=== PATIENT | male | born 1950 | race Caucasian/White ===

== ENCOUNTER → 2020-02-02 12:39 | Outpatient (BNVA) | payer MEDICARE, SELFPAY | PROVIDERS: PCP Internal Medicine; Visit Provider Internal Medicine | DX: I48.92 Unspecified atrial flutter (principal); R60.9 Edema, unspecified; I10 Essential (primary) hypertension; Z79.01 Long term (current) use of anticoagulants; Z79.899 Other long term (current) drug therapy | CPT/HCPCS: 93005; 99212 ==

== ENCOUNTER → 2020-03-14 12:34 | Outpatient (REF) | payer MEDICARE, SELFPAY ==
--- NOTE | 2020-03-14 12:37 | ECG_ITS ---
Hook-up date: 2020-03-14 12:48:00 Duration: 26:01:00 Test Indications: UNSPEC. ATRIAL FLUTTER Medications: 888492 QRS complexes * Ventricular ectopics which represent % of total QRS comp. 01818 Supraventricular ectopics which represent 10 % of total QRS comp. * Paced QRS complexs which represent % of total QRS comp. VENTRICULAR ECTOPY * Isolated * Bigeminal Cycles * Couplets * Runs * Beats in Runs * Beats LONGEST at * BPM at :: -- * Beats FASTEST at * BPM at :: -- SUPRAVENTRICULAR ECTOPY 81010 Isolated 125 Couplets 25 Runs 77 Beats in Runs 4 Beats LONGEST at 166 BPM at 16:00:34 2020-03-14 4 Beats FASTEST at 166 BPM at 16:00:34 2020-03-14 HEART RATES 54 MIN at 07:05:21 2020-03-15 79 AVG 137 MAX at 11:56:43 2020-03-15 LONGEST RR 1.8880 secs at 15:28:08 2020-03-14 S-T LEVELS Channel 1 - 128 mm at 12:48:00 2020-03-14 - 128 mm at 12:48:00 2020-03-14 Channel 2 - 128 mm at 12:48:00 2020-03-14 - 128 mm at 12:48:00 2020-03-14 Channel 3 - 128 mm at 03:20:71 -- - 128 mm at 03:20:71 Basic rhythm Normal sinus rhythm No long pause or profound bradycardia Baseline BBB Frequent Premature atrial complexes , 10% of total beats Short bursts of SVE No sustained Atrial fibrillation No diary submitted Referred By: Ted Cortez Overread By: LUCERO WINKLER MD
== END ==
LOC: HO.CARD 12:34
PROVIDERS: Visit Provider Internal Medicine
DX: I48.92 Unspecified atrial flutter (principal)
CPT/HCPCS: 93225; 93226

== ENCOUNTER → 2020-04-25 09:30 | Outpatient (BNVA) | payer MEDICARE, SELFPAY | PROVIDERS: Visit Provider Internal Medicine | DX: I48.92 Unspecified atrial flutter (principal); R60.0 Localized edema; I10 Essential (primary) hypertension; G47.33 Obstructive sleep apnea (adult) (pediatric) | CPT/HCPCS: 99212 ==

== ENCOUNTER → 2020-06-20 08:28 | Outpatient (BNVA) | payer MEDICARE, SELFPAY | PROVIDERS: PCP Internal Medicine; Visit Provider Psychiatry & Neurology Neurology | DX: G47.33 Obstructive sleep apnea (adult) (pediatric) (principal) | CPT/HCPCS: 99202 ==

== ENCOUNTER → 2020-08-29 09:53 | Outpatient (BNVA) | payer MEDICARE, SELFPAY | PROVIDERS: PCP Internal Medicine; Visit Provider Psychiatry & Neurology Neurology | DX: G47.33 Obstructive sleep apnea (adult) (pediatric) (principal) | CPT/HCPCS: Q3014 ==

== ENCOUNTER → 2020-10-26 12:30 | Outpatient (BNVA) | payer MEDICARE, SELFPAY | PROVIDERS: PCP Internal Medicine; Referring Provider Internal Medicine; Visit Provider Internal Medicine | DX: I48.92 Unspecified atrial flutter (principal); R60.0 Localized edema; I10 Essential (primary) hypertension; G47.33 Obstructive sleep apnea (adult) (pediatric) | CPT/HCPCS: 99212 ==

== ENCOUNTER → 2020-11-14 09:53 | Outpatient (BNVA) | payer MEDICARE, SELFPAY | PROVIDERS: PCP Internal Medicine; Referring Provider Internal Medicine; Visit Provider Psychiatry & Neurology Neurology | DX: G47.33 Obstructive sleep apnea (adult) (pediatric) (principal) | CPT/HCPCS: 99212 ==

== ENCOUNTER 2021-03-15 15:17 | Outpatient (REF) | payer MEDICARE, SELFPAY ==
[2021-03-15 16:06] LABS: Anion Gap 13 (12-20); Blood Urea Nitrogen 12 mg/dL (9-16); Calcium 9.7 mg/dL (8.4-10.2); Carbon Dioxide 27 mmol/L (22-29); Chloride 106 mmol/L (96-108); Estimated Glomerular Filt Rate > 60; Glucose Random 89 mg/dL (60-115); Potassium 4.2 mmol/L (3.3-5.1); Sodium 142 mmol/L (135-145)
== END 2021-03-15 15:18 | disposition home or self-care (01) ==
LOC: HO.LAB 15:17
PROVIDERS: Visit Provider Internal Medicine
DX: I10 Essential (primary) hypertension (principal)
CPT/HCPCS: 36415; 80048

== ENCOUNTER → 2021-05-01 12:08 | Outpatient (BNVA) | payer MEDICARE, SELFPAY | PROVIDERS: PCP Internal Medicine; Referring Provider Internal Medicine; Visit Provider Internal Medicine | DX: I48.92 Unspecified atrial flutter (principal); I45.2 Bifascicular block; I10 Essential (primary) hypertension; G47.33 Obstructive sleep apnea (adult) (pediatric); R60.0 Localized edema | CPT/HCPCS: 93005; 99212 ==

== ENCOUNTER → 2021-10-29 12:09 | Outpatient (BNVA) | payer MEDICARE, SELFPAY | PROVIDERS: PCP Internal Medicine; Referring Provider Internal Medicine; Visit Provider Internal Medicine | DX: I48.92 Unspecified atrial flutter (principal); R60.0 Localized edema; I10 Essential (primary) hypertension; I45.2 Bifascicular block; G47.33 Obstructive sleep apnea (adult) (pediatric); E66.01 Morbid (severe) obesity due to excess calories; Z68.41 Body mass index [BMI] 40.0-44.9, adult | CPT/HCPCS: 99212 ==

== ENCOUNTER → 2022-04-23 12:37 | Outpatient (BNVA) | payer MEDICARE, SELFPAY | PROVIDERS: PCP Internal Medicine; Referring Provider Internal Medicine; Visit Provider Internal Medicine | DX: I48.92 Unspecified atrial flutter (principal); I10 Essential (primary) hypertension; I45.2 Bifascicular block; R60.0 Localized edema; G47.33 Obstructive sleep apnea (adult) (pediatric); E66.01 Morbid (severe) obesity due to excess calories; Z68.41 Body mass index [BMI] 40.0-44.9, adult; Z79.01 Long term (current) use of anticoagulants; Z79.899 Other long term (current) drug therapy | CPT/HCPCS: 93005; 99212 ==

== ENCOUNTER → 2022-04-26 13:57 | Outpatient (BNVA) | payer MEDICARE, SELFPAY | PROVIDERS: PCP Internal Medicine; Visit Provider Nurse Practitioner Family | DX: G47.33 Obstructive sleep apnea (adult) (pediatric) (principal) | CPT/HCPCS: 99212 ==

== ENCOUNTER 2023-04-24 12:50 | Outpatient (AMB) | payer MEDICARE, SELFPAY ==
--- NOTE | 2023-04-24 13:09 | A.OFFVIS_ITS ---
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 He reports he has been doing well. He had a medical history of obesity, atrial flutter, bifascicular bundle branch block, hypertension, and STEFANY with daily CPAP use. He reports he has been doing good since his last visit. He denies any chest pain, shortness of breath, bleeding concerns, or swelling. He reports his blood pressures at home are typically 130s/70s. Blood pressure initially high upon arrival. Rechecked by me and improved. [facility] Medical History Morbid obesity STEFANY (obstructive sleep apnea) Essential hypertension Paroxysmal atrial flutter Surgical History History of Mohs micrographic surgery for skin cancer Family History Father No problems noted. Mother Muscular dystrophy Social History Alcohol intake: current Alcohol intake frequency: holidays/special occasions only Patient Tobacco Use Status: Former Tobacco user Quit Date: 3 yrs ago Review of Systems Const Denies chills, Denies fatigue, Denies fever(s), Denies frequent falls, Denies weakness, Denies weight gain and Denies weight loss ENT Denies dizziness Card Denies chest pain, Denies leg edema, Denies lightheadedness, Denies palpitations, Denies dyspnea and Denies dyspnea on exertion Resp Denies cough, Denies dyspnea and Denies dyspnea on exertion GI Denies hematochezia Musc Denies abnormal gait, Denies muscle weakness, Denies numbness, Denies radiating pain into limb and Denies tingling Neuro Denies abnormal gait, Denies dizziness, Denies frequent falls, Denies numbness, Denies tingling and Denies weakness Endo Denies fatigue and Denies palpitations Physical Exam Vital Signs: Last Vital Signs Pulse 86 04/24/23 13:11 BP 130/70 04/24/23 13:30 BMI result Body Mass Index 45.2 Const General: healthy appearing and no acute distress Orientation/consciousness: patient oriented x3 HEENT Head: Yes normal to inspection Eyes General: appearance normal, both eyes and all related structures Neck Neck: Yes normal visual inspection Chest Chest palpation & inspection: normal inspection of the chest Resp Effort & Inspection: normal respiratory effort Auscultation: clear to auscultation bilaterally Cardio Jugular venous distension: no JVD Palpation: normal PMI Rate: regular rate Rhythm: regular rhythm Heart sounds: S1 normal heart sound present, S2 normal heart sound present, no click, no gallops, no murmurs and no rubs GI Inspection: Yes normal to inspection Palpation (GI): Soft to palpation Skin General skin exam: no rashes or lesions noted Neuro General: patient oriented x3 Extrem General: Yes normal to inspection Psych Appearance: grossly normal Office Procedures EKG Details: EKG today. Normal Sinus Rhythm. Right bundle branch block. Left anterior fascicular block. Bifascicular block. Rate 86 bpm. No significant changes from last. [id number], Complete Assessment & Plan Assessment & Plan (1) Bifascicular bundle branch block: Code(s): I45.2 - Bifascicular block Plan: Follow on EKGs. (2) STEFANY (obstructive sleep apnea): Code(s): G47.33 - Obstructive sleep apnea (adult) (pediatric) Plan: Continue CPAP use. (3) Essential hypertension: Code(s): I10 - Essential (primary) hypertension Plan: Readings at home 130s/70s. His sister checks it for him periodically as she is a nurse and is within normal limits. On lisinopril. (4) Paroxysmal atrial flutter: Code(s): I48.92 - Unspecified atrial flutter Plan: No reports of palpitations. On diltiazem and eliquis. Report recurrent episodes and signs of bleeding. Signs of bleeding reviewed. Coding Level of Care Code Est Pt Level 3 (45388) Diagnoses Bifascicular bundle branch block I45.2 STEFANY (obstructive sleep apnea) G47.33 Essential hypertension I10 Paroxysmal atrial flutter I48.92 CPT Codes EKG - CPT: 86712-[id number], Complete ([id number])
[2023-04-24 13:11] VITALS: BP 160/70; PULSE 86; BMI 45.2
[2023-04-24 13:30] VITALS: BP 130/70
== END 2023-04-24 13:48 | disposition home or self-care (01) ==
PROVIDERS: Visit Provider Nurse Practitioner
DX: I45.2 Bifascicular block (principal); G47.33 Obstructive sleep apnea (adult) (pediatric); I10 Essential (primary) hypertension; I48.92 Unspecified atrial flutter
CPT/HCPCS: 93010; 99213

== ENCOUNTER → 2023-04-24 12:50 | Outpatient (BNVA) | payer MEDICARE, SELFPAY | PROVIDERS: Visit Provider Nurse Practitioner | DX: I45.2 Bifascicular block (principal); I48.92 Unspecified atrial flutter; I10 Essential (primary) hypertension; G47.33 Obstructive sleep apnea (adult) (pediatric) | CPT/HCPCS: 93005; 99212 ==

== ENCOUNTER 2023-04-30 14:18 | Outpatient (AMB) | payer MEDICARE, SELFPAY ==
--- NOTE | 2023-04-30 14:28 | MHC.OFFVIS ---
Intake Vital Signs 04/30/23 14:33 Height 5 ft 9 in Weight 308 lb BMI 45.5 BP 142/72 H Blood Pressure Location Lt brachial Position Sitting Pulse 74 Pulse Source Pulse Oximeter Pulse Oximetry (%) 95 Oxygen Delivery Method Room Air Intake Visit Reasons: 1yr follow up sleep-CONF Intake Note: Patient presents for 1 year f/u. waking up breathing through mouth and not through the nose causing dry mouth. Allergies No Known Allergies Allergy (Verified 04/30/23 14:32) HPI HPI Comments History of Present Illness Details 71 y/o male patient presents for follow up of STEFANY on CPAP. Pt reports that he uses CPAP almost every night and sleeps ok with CPAP. However, he noticed that his AHI has been increased lately. Pt states that his CPAP is more than 6 years now. Pt's CPAP compliance and therapy response (01/25/23-04/24/23) reviewed. He is on APAP [id number]. Usage days 97% and average usage hours 9 hours. The max pressure is 19.8 and the residual AHI was 14/hr . The apnea index was central 3.1 and obstructive 7.2. COUNTS INCLUDE 234 BEDS AT THE [facility] Medical History (Updated 04/30/23 @ 14:48 by Glory Man CNP) Morbid obesity STEFANY (obstructive sleep apnea) Essential hypertension Paroxysmal atrial flutter Surgical History History of Mohs micrographic surgery for skin cancer Family History Father No problems noted. Mother Muscular dystrophy Social History Alcohol intake: current Alcohol intake frequency: holidays/special occasions only Patient Tobacco Use Status: Former Tobacco user Quit Date: 3 yrs ago Review of Systems Const All systems reviewed & are unremarkable except as noted in HPI and below ENT Reports Normal hearing present Neuro Reports Normal hearing present Physical Exam Vital Signs: Last Vital Signs Pulse 74 04/30/23 14:33 BP 142/72 H 04/30/23 14:33 Pulse Ox 95 04/30/23 14:33 Oxygen Delivery Method Room Air 04/30/23 14:33 BMI result Body Mass Index 45.5 Const General: cooperative Nutritional Appearance: obese Orientation/consciousness: patient oriented x3 Neck Neck: Yes full ROM and Yes supple Resp Effort & Inspection: normal respiratory effort and able to speak in complete sentences Neuro General: patient oriented x3, gait normal and moves all extremities Cranial nerves: Yes Bilaterally intact EOM present, Yes Normal facial strength present, Yes Midline tongue present, Yes Symmetric palate elevation present, Yes Normal hearing present, Yes Ability to bilaterally rotate head present and Yes Ability to bilaterally elevate shoulders present Cognition (Neuro): normal cognition Gait exam (Neuro): Normal gait present Psych Appearance: grossly normal Mental Status: mental status grossly normal Speech and movement: Normal speech and movement present Attitude: cooperative Assessment & Plan Assessment & Plan (1) STEFANY (obstructive sleep apnea): Code(s): G47.33 - Obstructive sleep apnea (adult) (pediatric) Plan Advised patient to undergo in lab sleep study (split) to assess sleep apnea and find optimal CPAP pressure to treat sleep apnea. Wt reduction advised. Orders: Orders RT PSG in-lab sleep study Today E66.01 - Morbid (severe) obesity due to excess calories, G47.33 - Obstructive sleep apnea (adult) (pediatric) Coding Level of Care Code Est Pt Level 3 (35287) Diagnoses STEFANY (obstructive sleep apnea) G47.33
[2023-04-30 14:33] VITALS: BP 142/72; PULSE 74; O2SAT 95; BMI 45.5
== END 2023-04-30 14:44 | disposition home or self-care (01) ==
PROVIDERS: Visit Provider Nurse Practitioner Family
DX: G47.33 Obstructive sleep apnea (adult) (pediatric) (principal)
CPT/HCPCS: 99213

== ENCOUNTER → 2023-04-30 14:18 | Outpatient (BNVA) | payer MEDICARE, SELFPAY | PROVIDERS: Visit Provider Nurse Practitioner Family | DX: G47.33 Obstructive sleep apnea (adult) (pediatric) (principal) | CPT/HCPCS: 99212 ==

== ENCOUNTER → 2023-06-03 20:30 | Outpatient (REF) | payer MEDICARE, SELFPAY | LOC: HO.SL 20:30 | PROVIDERS: PCP Internal Medicine; Visit Provider Nurse Practitioner Family | DX: G47.33 Obstructive sleep apnea (adult) (pediatric) (principal); E66.01 Morbid (severe) obesity due to excess calories | CPT/HCPCS: 95810 ==

== ENCOUNTER → 2023-06-04 00:27 | Outpatient (BNV) | payer MEDICARE, SELFPAY | PROVIDERS: PCP Internal Medicine; Visit Provider Psychiatry & Neurology Neurology | DX: G47.9 Sleep disorder, unspecified (principal); E66.01 Morbid (severe) obesity due to excess calories | CPT/HCPCS: 95810 ==

== ENCOUNTER 2023-06-11 08:31 | Outpatient (AMB) | payer MEDICARE, SELFPAY ==
--- NOTE | 2023-06-11 08:52 | MHC.OFFVIS ---
Intake Vital Signs 06/11/23 08:57 Weight 308 lb 8 oz BP 164/76 H Blood Pressure Location Lt brachial Position Sitting Respiration 16 Pulse 76 Pulse Source Pulse Oximeter Pulse Oximetry (%) 94 Oxygen Delivery Method Room Air Intake Visit Reasons: Neuropathy Bilateral feet Allergies No Known Allergies Allergy (Verified 06/11/23 08:52) HPI HPI Comments History of Present Illness Details Lj is a very pleasant 73-year-old male who presents to the office today for evaluation management of his chronic bilateral peripheral edema and left lateral thigh paresthesia. Patient reports burning pain to the bottom of both feet that has been going on for greater than 6 months. Patient reports that he is borderline diabetic, has never formally been diagnosed with diabetes and does not currently take any medications for diabetes. He states the pain has started to get worse, it is severe at bedtime and is impacting his ability to sleep. Pain exacerbated by walking and standing. Patient also reports many years of numbness, burning and shocking sensation to the left lateral thigh from the top of the trochanter to the knee. He has been evaluated in the past, they tried gabapentin which provided him no relief. They then told him there was nothing they could offer. He does report occasional pain across his lower back that improves with rest. Reports he was told in the past that he had arthritis. Denies radiation of the pain from the back down the leg to the foot. Pain today is rated as a 2/10, constant, worse in the evenings. In terms of muscle damage condition is described as hot, burning, numb, tingling, pins and needles. Pain is negatively impacting patient's enjoyment of life, general activity, sleep and walking. Patient endorses current use of anticoagulants, Eliquis. [facility] Medical History (Updated 06/11/23 @ 09:33 by Norma Garner, BETHANY, [employer]) Morbid obesity STEFANY (obstructive sleep apnea) Essential hypertension Paroxysmal atrial flutter Surgical History History of Mohs micrographic surgery for skin cancer Family History Father No problems noted. Mother Muscular dystrophy Social History Alcohol intake: current Alcohol intake frequency: holidays/special occasions only Patient Tobacco Use Status: Former Tobacco user Quit Date: 3 yrs ago Review of Systems Const All systems reviewed & are unremarkable except as noted in HPI and below Physical Exam Vital Signs: Last Vital Signs Pulse 76 06/11/23 08:57 Resp 16 06/11/23 08:57 BP 164/76 H 06/11/23 08:57 Pulse Ox 94 06/11/23 08:57 Oxygen Delivery Method Room Air 06/11/23 08:57 General: awake, alert, oriented. Answers questions appropriately. Fully engaged in examination. Skin: warm, dry, intact. Bilateral feet: No rashes, lesions, wounds, abrasions. HEENT: Normocephalic. Hearing intact. Cardiac: External chest normal in appearance. Bilateral peripheral edema. Respiratory: No cough, audible wheezing or stridor. Abdomen: without gross distension. MS: No obvious swelling or deformities. Able to stand on bilateral tiptoes and bilateral heels.? Able to transition from sit to stand unassisted. Ambulates with bilaterally normal heel strike and toe off Bilateral lower extremity strength 5/5 SLR negative bilaterally Nontender over bilateral PSIS Patient unable to perform TRENT due to physical restrictions No pain with internal external rotation of the left hip Lumbar range of motion intact Neurological: Oriented to person, place, time and situation. Thought process intact. No gait abnormalities appreciated. Psychiatric: Appropriate mood and affect. Good judgment and insight. Assessment & Plan Assessment & Plan (1) Peripheral neuropathy: Comment: Bilateral feet Code(s): G62.9 - Polyneuropathy, unspecified (2) Paresthesia: Comment: Left lateral thigh Code(s): R20.2 - Paresthesia of skin Plan Lj presented to the office today for evaluation management of his bilateral painful peripheral neuropathy and left lateral thigh paresthesia. Discussed options for treatment including topical treatment, diagnostic interventional testing, epidural steroid injections, peripheral nerve stimulation with Sprint, RFA and more permanent neuromodulation. Informational pamphlets provided. Will submit PA for Qutenza topical application. Patient advised on procedure including preparation and EMLA application prior to appointment. He is aware treatment is done in office and he will be here for 30minutes during each visit. EMG ordered for further evaluation neuropathy/paresthesia Will try amitriptyline 10 mg p.o. at bedtime. Patient advised on cautions for use All questions and concerns have been answered and patient agrees with the plan. Patient aware he will be called to schedule appointment for Quterryza pending insurance approval. Orders: Orders NE electromyogram (EMG) Today G62.9 - Polyneuropathy, unspecified, R20.2 - Paresthesia of skin Medications: New amitriptyline No driving taking this medication. May cause drowsiness 10 mg PO BEDTIME 30 tabs 3RF Coding Level of Care Code New Pt Level 4 (92629) Diagnoses Peripheral neuropathy G62.9 Paresthesia R20.2
[2023-06-11 08:57] VITALS: BP 164/76; PULSE 76; RESP 16; O2SAT 94
== END 2023-06-11 09:22 | disposition home or self-care (01) ==
PROVIDERS: PCP Internal Medicine; Visit Provider Registered Nurse Emergency
DX: G62.9 Polyneuropathy, unspecified (principal); R20.2 Paresthesia of skin
CPT/HCPCS: 99204

== ENCOUNTER → 2023-06-11 08:31 | Outpatient (BNVA) | payer MEDICARE, SELFPAY | PROVIDERS: PCP Internal Medicine; Visit Provider Registered Nurse Emergency | DX: G62.9 Polyneuropathy, unspecified (principal); R60.0 Localized edema; R20.2 Paresthesia of skin | CPT/HCPCS: 99202 ==

== ENCOUNTER 2023-07-11 08:08 | Outpatient (REF) | payer MEDICARE, SELFPAY ==
--- NOTE | 2023-07-11 08:11 | EMG_ITS ---
Chief complaint: 1-2 years of numbness on left lateral thigh/knee. Feet pain. Back pain. Reason for referral: Evaluate for neuropathy Referred by: Norma LOVE Procedure done: Bilateral lower extremity NCS/EMG Precautions and/or limitations: On Eliquis The limb temperature was monitored continuously and remained between 32-36 degrees C during the performance of the NCS. Nerve Conduction Studies Anti Sensory Summary Table ?Stim Site NR Onset (ms) Norm Onset (ms) Peak (ms) Norm Peak (ms) O-P Amp (?V) Norm O-P Amp Site1 Site2 Delta-0 (ms) Dist (cm) Juan (m/s) Norm Juan (m/s) Left Sural Anti Sensory (Lat Mall) Calf ? 2.4 3.4 <4.0 7.9 >5.0 Calf Lat Mall 2.4 14.0 58 Right Sural Anti Sensory (Lat Mall) Calf ? 2.5 3.6 <4.0 9.2 >5.0 Calf Lat Mall 2.5 14.0 56 Motor Summary Table ?Stim Site NR Onset (ms) Norm Onset (ms) O-P Amp (mV) Norm O-P Amp iAmp (mV) Amp (1st) (%) Site1 Site2 Delta-0 (ms) Dist (cm) Juan (m/s) Norm Juan (m/s) Right Peroneal Motor (Ext Dig Brev) Ankle ? 3.8 <4.0 3.4 >2.5 3.7 100.0 Ankle Ext Dig Brev 3.8 0.0 B Fib ? 10.9 2.8 3.1 82.4 B Fib Ankle 7.1 30.0 42 >40 Poplt ? 11.7 2.8 3.1 82.4 Poplt B Fib 0.8 5.0 63 >40 Left Tibial Motor (Abd Sands Brev) Ankle ? 3.9 <5 7.0 >2.5 9.2 100.0 Ankle Abd Sands Brev 3.9 0.0 Knee ? 13.6 1.9 2.6 27.1 Knee Ankle 9.7 39.0 40 >40 Right Tibial Motor (Abd Sands Brev) Ankle ? 4.5 <5 8.9 >2.5 10.6 100.0 Ankle Abd Sands Brev 4.5 0.0 Knee ? 12.5 1.8 2.5 20.2 Knee Ankle 8.0 40.0 50 >40 EMG ?Side Muscle Nerve Root Ins Act Fibs Psw Amp Dur Poly Recrt Int Pat Comment Left AbdHallucis MedPlantar S1-2 Incr 1+ 1+ Nml Nml 0 Nml Complete Left AntTibialis Dp Br Peron L4-5 Nml Nml Nml Nml Nml 0 Nml Complete Left MedGastroc Tibial S1-2 Nml Nml Nml Nml Nml 0 Nml Complete Left BicepsFemS Sciatic L5-S1 Nml Nml Nml Nml Nml 0 Nml Complete Left VastusMed Femoral L2-4 Nml Nml Nml Nml Nml 0 Nml Complete Left VastusLat Femoral L2-4 Nml Nml Nml Nml Nml 0 Nml Complete Right AbdHallucis MedPlantar S1-2 Incr 1+ 1+ Nml Nml 0 Nml Complete Right AntTibialis Dp Br Peron L4-5 Nml Nml Nml Nml Nml 0 Nml Complete Right Peroneus Long Sup Br Peron L5-S1 Nml Nml Nml Nml Nml 0 Nml Complete Right MedGastroc Tibial S1-2 Nml Nml Nml Nml Nml 0 Nml Complete Right VastusMed Femoral L2-4 Nml Nml Nml Nml Nml 0 Nml Complete FINDINGS: Bilateral tibial nerves showed normal distal latency, drop in amplitude proximally but normal conduction velocity. Right peroneal nerve within normal. Bilateral sural nerves were present with normal peak latencies and amplitudes. Concentric needle EMG was performed in selected muscles of the bilateral lower extremity. Study revealed signs of electric abnormalities as shown in the table below. Bilateral AH showed increased insertional activity, PSWs and fibrillations. IMPRESSION: 1. This is an abnormal study. 2. Findings above depict picture of a chronic, distal, symmetric, mainly axonal and motor, neuropathy. 3. However I can not completely rule out an L5-S1 radiculopathy. CLINICAL COMMENT: . Further clinical correlation recommended. Thank you for your kind referral. Lana Jean MD, ANUPAMA Board Certified, [place] Board [employer] and Rehabilitation (ABPMR) Board Certified, [place] Board of Electrodiagnostic Medicine (ABEM) [address] [facility]
== END 2023-07-11 08:09 | disposition home or self-care (01) ==
LOC: HO.NEURO 08:08
PROVIDERS: PCP Internal Medicine; Visit Provider Registered Nurse Emergency
DX: G62.9 Polyneuropathy, unspecified (principal); R20.2 Paresthesia of skin
CPT/HCPCS: 95886; 95909

== ENCOUNTER → 2023-07-11 08:11 | Outpatient (BNV) | payer MEDICARE, SELFPAY | PROVIDERS: PCP Internal Medicine; Visit Provider Physical Medicine & Rehabilitation | DX: M79.605 Pain in left leg (principal); R20.0 Anesthesia of skin; M54.50 Low back pain, unspecified; M79.604 Pain in right leg | CPT/HCPCS: 95886; 95909 ==

== ENCOUNTER 2023-07-23 12:39 | Outpatient (AMB) | payer MEDICARE, SELFPAY ==
[2023-07-23 13:04] VITALS: BP 133/78; PULSE 78; RESP 18; O2SAT 95; BMI 44.8
--- NOTE | 2023-07-23 13:04 | A.OFFVIS_ITS ---
Vital Signs 07/23/23 13:04 07/23/23 14:15 07/23/23 14:15 Height 5 ft 9 in Weight 303 lb 8 oz BMI 44.8 BP 133/78 152/73 H 142/66 H Blood Pressure Location Lt brachial Lt brachial Lt brachial Position Sitting Sitting Sitting Respiration 18 Pulse 78 Pulse Source Pulse Oximeter Pulse Oximetry (%) 95 Oxygen Delivery Method Room Air Comment 15 mins on Qutenza 30 mins on Qutenza Intake Visit Reasons: Qutenza - 1st Treatment Allergies No Known Allergies Allergy (Verified 06/11/23 08:52) HPI Comments Details: Patient presents to the office today for first Qutenza application. He applied EMLA cream at home per instructions. He is accompanied by his daughter today. He denies any changes in his painful bilateral peripheral neuropathy since last visit. Denies new meds, allergies or diagnoses. Patient denies any recent injuries or wounds to his feet. Has been using amitriptyline 10 mg at bedtime with some improvement of his symptoms. He reports sleeping better, was frequent episodes of waking up in the night due to the neuropathy in his feet. [facility] Medical History (Updated 06/11/23 @ 09:33 by Norma Garner APRN, [employer]) Morbid obesity STEFANY (obstructive sleep apnea) Essential hypertension Paroxysmal atrial flutter Surgical History History of Mohs micrographic surgery for skin cancer Family History Father No problems noted. Mother Muscular dystrophy Social History Alcohol intake: current Alcohol intake frequency: holidays/special occasions only Patient Tobacco Use Status: Former Tobacco user Quit Date: 3 yrs ago Review of Systems Const All systems reviewed & are unremarkable except as noted in HPI and below Physical Exam Vital Signs: Last Vital Signs Pulse 78 07/23/23 13:04 Resp 18 07/23/23 13:04 BP 133/78 07/23/23 13:04 Pulse Ox 95 07/23/23 13:04 Oxygen Delivery Method Room Air 07/23/23 13:04 BMI result Body Mass Index 44.8 General: awake, alert, oriented. Answers questions appropriately. Fully engaged in examination. Skin: Bilateral feet: No rashes, lesions, wounds, abrasions. HEENT: Normocephalic. Hearing intact. Cardiac: External chest normal in appearance. Bilateral peripheral edema. Respiratory: No cough, audible wheezing or stridor. Abdomen: without gross distension. MS: No obvious swelling or deformities. Able to stand on bilateral tiptoes and bilateral heels.? Able to transition from sit to stand unassisted. Neurological: Oriented to person, place, time and situation. Thought process intact. No gait abnormalities appreciated. Psychiatric: Appropriate mood and affect. Good judgment and insight. Office Meds capsaicin-skin cleanser 8 % topical kit Performing Provider: Norma Garner APRN, CNP Performing Location: [facility] Administered by: Norma Garner APRN, CNP on 07/23/23 13:40 Dose Route Admin Location Dispensed Lot Number Expiration Date [facility] Cord [employer] 4 ea topical 4 ea [id number] 09/07/25 46715-248-83 [employer] Comments: Patient applied topical EMLA cream to both feet prior to arrival for his scheduled appointment. Feet exposed, no wounds, rashes or breaks in skin noted. Light touch sensation intact bilaterally. Four single use topical patches (179mg capsaicin) divided between feet, 2 patches per foot, wrapped and secured per package instructions. Patient monitored throughout the procedure with BP checks every 15 minutes. He tolerated the 30 minute application well. Results Reviewed Results Reviewed: 07/11/23 EMG FINDINGS: Bilateral tibial nerves showed normal distal latency, drop in amplitude proximally but normal conduction velocity. Right peroneal nerve within normal. Bilateral sural nerves were present with normal peak latencies and amplitudes. Concentric needle EMG was performed in selected muscles of the bilateral lower extremity. Study revealed signs of electric abnormalities as shown in the table below. Bilateral AH showed increased insertional activity, PSWs and fibrillations. IMPRESSION: 1. This is an abnormal study. 2. Findings above depict picture of a chronic, distal, symmetric, mainly axonal and motor, neuropathy. 3. However I can not completely rule out an L5-S1 radiculopathy. Assessment & Plan Assessment & Plan (1) Peripheral neuropathy: Comment: Bilateral feet Code(s): G62.9 - Polyneuropathy, unspecified Category: Medical (2) Paresthesia: Comment: Left lateral thigh Code(s): R20.2 - Paresthesia of skin Category: Medical Plan Patient presented to the office today for 1st Qutenza topical application for bilateral peripheral neuropathy. Qutenza application as per above. Patient tolerated well, discharged home with no reported untoward effects. Cleansing gel applied prior to discharge, patient given cleansing gel for home use if needed. Will increase amitriptyline to 25mg p.o. at bedtime. Patient advised on cautions for use All questions and concerns were answered. Patient will follow up in the office as planned for next Qutenza application. Orders: Orders AMB Capsaicin Patch - Practice Supplied Today G62.9 - Polyneuropathy, unspecified Medications: Changed From amitriptyline No driving taking this medication. May cause drowsiness 10 mg PO BEDTIME 30 tabs 3RF To amitriptyline No driving taking this medication. May cause drowsiness 25 mg PO BEDTIME 30 tabs 3RF Coding Level of Care Code Est Pt Level 4 (96433) Diagnoses Peripheral neuropathy G62.9 Paresthesia R20.2
[2023-07-23 14:15] VITALS: BP 142/66; BP 152/73
== END 2023-07-23 14:37 | disposition home or self-care (01) ==
PROVIDERS: PCP Internal Medicine; Visit Provider Registered Nurse Emergency
DX: R20.2 Paresthesia of skin (principal); G62.9 Polyneuropathy, unspecified
CPT/HCPCS: 17999; 99214

== ENCOUNTER → 2023-07-23 12:39 | Outpatient (BNVA) | payer MEDICARE, SELFPAY | PROVIDERS: PCP Internal Medicine; Visit Provider Registered Nurse Emergency | DX: G62.9 Polyneuropathy, unspecified (principal); R20.2 Paresthesia of skin; Z79.899 Other long term (current) drug therapy | CPT/HCPCS: 17999; 99212; J7336 ==

== ENCOUNTER 2023-08-26 14:42 | Outpatient (AMB) | payer MEDICARE, SELFPAY ==
--- NOTE | 2023-08-26 15:06 | A.OFFVIS_ITS ---
Vital Signs 08/26/23 15:07 Height 5 ft 9 in BP 158/76 H Blood Pressure Location Rt brachial Position Sitting Pulse 88 Pulse Source Pulse Oximeter Pulse Oximetry (%) 96 Oxygen Delivery Method Room Air Intake Visit Reasons: 4m follow up sleep-CONF Intake Note: Patient presents for 4 month follow up sleep. Patient had sleep study done a few months on hasn't gotten results. Allergies No Known Allergies Allergy (Verified 08/26/23 15:10) Medication List - Last Reconciled 08/26/23 by TIFFANIE Kaiser amitriptyline 25 mg PO BEDTIME apixaban (Eliquis) 5 mg PO BID atorvastatin 20 mg PO DAILY diltiazem HCl CD 240 mg PO DAILY furosemide 20 mg PO DAILY lidocaine-prilocaine 2.5-2.5 % 1 appl topical ONCE lisinopril 10 mg PO DAILY multivitamin 1 tab PO DAILY HPI Comments Details: 73-yr-old male presents for follow-up visit of sleep apnea. Pt denies any significant interval medical history changes. Pt underwent in-lab PSG, as he was having high residual AHI on APAP 5-20 cmH2O w/ EPR 0, however results were inconclusive d/t poor sleep time and quality during sleep study. Pt reports he has started Amitriptyline 25mg qhs, which has helped him sleep better. He also notes that since starting amitriptyline, his residual AHI has decreased- now often < 10/hr. [facility] Medical History (Updated 08/26/23 @ 16:39 by TIFFANIE Kaiser) Morbid obesity STEFANY (obstructive sleep apnea) Essential hypertension Paroxysmal atrial flutter Surgical History History of Mohs micrographic surgery for skin cancer Family History Father No problems noted. Mother Muscular dystrophy Social History Alcohol intake: current Alcohol intake frequency: holidays/special occasions only Patient Tobacco Use Status: Former Tobacco user Review of Systems Const All systems reviewed & are unremarkable except as noted in HPI and below Physical Exam Vital Signs: Last Vital Signs Pulse 88 08/26/23 15:07 BP 158/76 H 08/26/23 15:07 Pulse Ox 96 08/26/23 15:07 Oxygen Delivery Method Room Air 08/26/23 15:07 Const General: no acute distress Orientation/consciousness: patient oriented x3 Resp Effort & Inspection: normal respiratory effort and able to speak in complete sentences Auscultation: clear to auscultation bilaterally Cardio Rate: regular rate Rhythm: regular rhythm Neuro General: patient oriented x3 Psych Mental Status: mental status grossly normal Speech and movement: Clear speech present Attitude: cooperative Assessment & Plan Assessment & Plan (1) STEFANY (obstructive sleep apnea): Comment: HST, Jan 2020, c/w with severe sleep apnea w/.AHI was 32 /hr and oxygen valdemar 81% Code(s): G47.33 - Obstructive sleep apnea (adult) (pediatric) Category: Medical (2) Paresthesia: Comment: Left lateral thigh Code(s): R20.2 - Paresthesia of skin Category: Medical Plan Will adjust PAP settings from APAP [id number] w/ EPR 0 to APAP 12-20 cmH2O w/ EPR 3- in hopes this reduces residual AHI. Order written and [facility] Continue Amitriptyline 25mg qhs- as this is helping sleep. Clean CPAP machine and supplies routinely. Change CPAP supplies routinely. Pt to contact us or respiratory company with any questions or concerns. Coding Level of Care Code Est Pt Level 4 (13241) Diagnoses STEFANY (obstructive sleep apnea) G47.33 Paresthesia R20.2
[2023-08-26 15:07] VITALS: BP 158/76; PULSE 88; O2SAT 96
== END 2023-08-26 15:54 | disposition home or self-care (01) ==
PROVIDERS: PCP Internal Medicine; Visit Provider Nurse Practitioner Family
DX: G47.33 Obstructive sleep apnea (adult) (pediatric) (principal); R20.2 Paresthesia of skin
CPT/HCPCS: 99214

== ENCOUNTER → 2023-08-26 14:42 | Outpatient (BNVA) | payer MEDICARE, SELFPAY | PROVIDERS: PCP Internal Medicine; Visit Provider Nurse Practitioner Family | DX: G47.33 Obstructive sleep apnea (adult) (pediatric) (principal); R20.2 Paresthesia of skin | CPT/HCPCS: 99212 ==

== ENCOUNTER 2023-10-29 12:46 | Outpatient (AMB) | payer MEDICARE, SELFPAY ==
[2023-10-29 13:00] VITALS: BP 143/74; PULSE 80; O2SAT 95
[2023-10-29 13:23] VITALS: BP 134/65; PULSE 71; O2SAT 94
[2023-10-29 13:40] VITALS: BP 137/68; PULSE 72; O2SAT 94
--- NOTE | 2023-10-29 13:56 | A.OFFVIS_ITS ---
Vital Signs 10/29/23 13:00 10/29/23 13:23 10/29/23 13:40 Height 5 ft 9 in BP 143/74 H 134/65 137/68 Blood Pressure Location Lt brachial Lt brachial Lt brachial Position Sitting Sitting Sitting Pulse 80 71 72 Pulse Source Pulse Oximeter Pulse Oximeter Pulse Oximeter Pulse Oximetry (%) 95 94 94 Oxygen Delivery Method Room Air Room Air Room Air Comment Pre Qutenza 15 mins on Qutenza 30 mins on Qutenza Intake Visit Reasons: QUTENZA Allergies No Known Allergies Allergy (Verified 08/26/23 15:10) HPI Comments Details: Patient presents to the office today, accompanied by his daughter, for 2nd Qutenza application. Applied EMLA cream at home per instructions. He denies any changes in his painful bilateral peripheral neuropathy since last visit. Denies new meds, allergies or diagnoses. Patient denies any recent injuries or wounds to his feet. Has been taking amitriptyline 25 mg at bedtime. Reports has been sleeping very well with this dose. [facility] Medical History (Updated 08/26/23 @ 16:39 by TIFFANIE Kaiser) Morbid obesity STEFANY (obstructive sleep apnea) Essential hypertension Paroxysmal atrial flutter Surgical History History of Mohs micrographic surgery for skin cancer Family History Father No problems noted. Mother Muscular dystrophy Social History Alcohol intake: current Alcohol intake frequency: holidays/special occasions only Patient Tobacco Use Status: Former Tobacco user Review of Systems Const All systems reviewed & are unremarkable except as noted in HPI and below Physical Exam Vital Signs: Last Vital Signs Pulse 72 10/29/23 13:40 BP 137/68 10/29/23 13:40 Pulse Ox 94 10/29/23 13:40 Oxygen Delivery Method Room Air 10/29/23 13:40 General: awake, alert, oriented. Answers questions appropriately. Fully engaged in examination. Skin: Bilateral feet: No rashes, lesions, wounds, abrasions. HEENT: Normocephalic. Hearing intact. Cardiac: External chest normal in appearance. Bilateral peripheral edema. Respiratory: No cough, audible wheezing or stridor. Abdomen: without gross distension. MS: No obvious swelling or deformities. Able to stand on bilateral tiptoes and bilateral heels.? Able to transition from sit to stand unassisted. Neurological: Oriented to person, place, time and situation. Thought process intact. No gait abnormalities appreciated. Psychiatric: Appropriate mood and affect. Good judgment and insight. Office Procedures Topical Capsaicin Date 1:: 07/23/23 Date 2:: 10/29/23 Laterality: Bilateral Office Meds capsaicin-skin cleanser 8 % topical kit Performing Provider: Norma Garner APRN, CNP Performing Location: [facility] [place] [facility] Administered by: Norma Garner APRN, CNP on 10/29/23 15:55 Dose Route Admin Location Dispensed Lot Number Expiration Date [facility] Travel Registered Nurse Pacu 4 ea topical 4 ea [id number] 09/07/25 35533-923-35 [employer] Comments: Patient applied topical EMLA cream to both feet prior to arrival for his scheduled appointment. Feet exposed, no wounds, rashes or breaks in skin noted. Light touch sensation intact bilaterally. Four single use topical patches (179mg capsaicin) divided between feet, 2 patches per foot, wrapped and secured per package instructions. Patient monitored throughout the procedure with BP checks every 15 minutes. He tolerated the 30 minute application well. Results Reviewed Results Reviewed: 07/11/23 EMG FINDINGS: Bilateral tibial nerves showed normal distal latency, drop in amplitude proximally but normal conduction velocity. Right peroneal nerve within normal. Bilateral sural nerves were present with normal peak latencies and amplitudes. Concentric needle EMG was performed in selected muscles of the bilateral lower extremity. Study revealed signs of electric abnormalities as shown in the table below. Bilateral AH showed increased insertional activity, PSWs and fibrillations. IMPRESSION: 1. This is an abnormal study. 2. Findings above depict picture of a chronic, distal, symmetric, mainly axonal and motor, neuropathy. 3. However I can not completely rule out an L5-S1 radiculopathy. Assessment & Plan Assessment & Plan (1) Peripheral neuropathy: Comment: Bilateral feet Code(s): G62.9 - Polyneuropathy, unspecified Category: Medical (2) Paresthesia: Comment: Left lateral thigh Code(s): R20.2 - Paresthesia of skin Category: Medical Plan Patient presented to the office today for 2nd Qutenza topical application for bilateral peripheral neuropathy. Qutenza application as per above. Patient tolerated well, discharged home with no reported untoward effects. Cleansing gel applied prior to discharge, patient given cleansing gel for home use if needed. Continue with amitriptyline to 25mg p.o. at bedtime. Patient advised on cautions for use All questions and concerns were answered. Patient will follow up in the office as planned for next Qutenza application. Orders: Orders AMB Capsaicin Patch - Practice Supplied Today G62.9 - Polyneuropathy, unspecified Medications: Refilled lidocaine-prilocaine 2.5-2.5 % cleanse feet thoroughly, apply to both feet 30 minutes prior to appointment. 1 appl topical ONCE 30 grams 0RF preprocedure Coding Level of Care Code Est Pt Level 4 (43215) Diagnoses Peripheral neuropathy G62.9 Paresthesia R20.2
== END 2023-10-29 14:09 | disposition home or self-care (01) ==
PROVIDERS: PCP Internal Medicine; Visit Provider Registered Nurse Emergency
DX: G62.9 Polyneuropathy, unspecified (principal); R20.2 Paresthesia of skin
CPT/HCPCS: 17999; 99214

== ENCOUNTER → 2023-10-29 12:46 | Outpatient (BNVA) | payer MEDICARE, SELFPAY | PROVIDERS: PCP Internal Medicine; Visit Provider Registered Nurse Emergency | DX: G62.9 Polyneuropathy, unspecified (principal); R20.2 Paresthesia of skin | CPT/HCPCS: 17999; 99212; J7336 ==

== ENCOUNTER 2024-01-21 12:48 | Outpatient (AMB) | payer MEDICARE, SELFPAY ==
[2024-01-21 13:02] VITALS: BP 141/79; PULSE 85; O2SAT 94; BMI 45.8
--- NOTE | 2024-01-21 13:02 | MHC.OFFVIS ---
Vital Signs 01/21/24 13:02 Height 5 ft 9 in Weight 310 lb BMI 45.8 BP 141/79 H Blood Pressure Location Lt brachial Position Sitting Pulse 85 Pulse Source Pulse Oximeter Pulse Oximetry (%) 94 Oxygen Delivery Method Room Air Comment Pre Qutenza Intake Visit Reasons: QUTENZA Allergies No Known Allergies Allergy (Verified 01/21/24 13:03) Medication List - Last Reconciled 01/21/24 by Norma Garner, FINANCIAL AID, NEUROCRITICAL CARE PHYSICIAN amitriptyline 25 mg PO BEDTIME 90 days apixaban (Eliquis) 5 mg PO BID atorvastatin 20 mg PO DAILY diltiazem HCl CD 240 mg PO DAILY furosemide 20 mg PO DAILY lidocaine-prilocaine 2.5-2.5 % 1 appl topical ONCE lisinopril 10 mg PO DAILY metformin 500 mg PO DAILY multivitamin 1 tab PO DAILY HPI Comments Details: Patient presents to the office today, accompanied by his daughter, for 3rd Qutenza application. Applied EMLA cream at home per instructions. He denies any changes in his painful bilateral peripheral neuropathy since last visit. Recently had appointment for his physical with his primary care doctor. He was told he has ?prediabetic? started on metformin 500 mg daily. Patient denies any recent injuries or wounds to his feet. Doing well on 25 mg amitriptyline at bedtime. He states he is sleeping well, no longer taking naps the daytime. Also reports that his neuropathy has much improved since last visit. [facility] Medical History (Updated 08/26/23 @ 16:39 by TIFAFNIE Kaiser) Morbid obesity STEFANY (obstructive sleep apnea) Essential hypertension Paroxysmal atrial flutter Surgical History History of Mohs micrographic surgery for skin cancer Family History Father No problems noted. Mother Muscular dystrophy Social History Alcohol intake: current Alcohol intake frequency: holidays/special occasions only Patient Tobacco Use Status: Former Tobacco user Review of Systems Const All systems reviewed & are unremarkable except as noted in HPI and below Physical Exam Vital Signs: Last Vital Signs Pulse 85 01/21/24 13:02 BP 141/79 H 01/21/24 13:02 Pulse Ox 94 01/21/24 13:02 Oxygen Delivery Method Room Air 01/21/24 13:02 BMI result Body Mass Index 45.8 General: awake, alert, oriented. Answers questions appropriately. Fully engaged in examination. Skin: Bilateral feet: No rashes, lesions, wounds, abrasions. HEENT: Normocephalic. Hearing intact. Cardiac: External chest normal in appearance. Bilateral peripheral edema. Respiratory: No cough, audible wheezing or stridor. Abdomen: without gross distension. MS: No obvious swelling or deformities. Neurological: Oriented to person, place, time and situation. Thought process intact. No gait abnormalities appreciated. Psychiatric: Appropriate mood and affect. Good judgment and insight. Office Meds capsaicin-skin cleanser 8 % topical kit Performing Provider: Norma Garner APRN, CNP Performing Location: [facility] Administered by: Norma Garner APRN, CNP on 01/21/24 13:11 Dose Route Admin Location Dispensed Lot Number Expiration Date [facility] Visual Merchandising Manager 4 ea topical 4 ea [id number] 09/07/25 56245-494-03 [employer] Comments: Patient applied topical EMLA cream to both feet prior to arrival for his scheduled appointment. Feet exposed, no wounds, rashes or breaks in skin noted. Light touch sensation intact bilaterally. Four single use topical patches (179mg capsaicin) divided between feet, 2 patches per foot, wrapped and secured per package instructions. Patient monitored throughout the procedure with BP checks every 15 minutes. He tolerated the 30 minute application well. Results Reviewed Results Reviewed: 07/11/23 EMG FINDINGS: Bilateral tibial nerves showed normal distal latency, drop in amplitude proximally but normal conduction velocity. Right peroneal nerve within normal. Bilateral sural nerves were present with normal peak latencies and amplitudes. Concentric needle EMG was performed in selected muscles of the bilateral lower extremity. Study revealed signs of electric abnormalities as shown in the table below. Bilateral AH showed increased insertional activity, PSWs and fibrillations. IMPRESSION: 1. This is an abnormal study. 2. Findings above depict picture of a chronic, distal, symmetric, mainly axonal and motor, neuropathy. 3. However I can not completely rule out an L5-S1 radiculopathy. Assessment & Plan Assessment & Plan (1) Peripheral neuropathy: Comment: Bilateral feet Code(s): G62.9 - Polyneuropathy, unspecified Category: Medical (2) Paresthesia: Comment: Left lateral thigh Code(s): R20.2 - Paresthesia of skin Category: Medical Plan Patient presented to the office today for 3rd Qutenza topical application for bilateral peripheral neuropathy. Qutenza application as per above. Patient tolerated well, discharged home with no reported untoward effects. Cleansing gel applied prior to discharge, patient given cleansing gel for home use if needed. Continue with amitriptyline to 25mg p.o. at bedtime. No refill needed today. All questions and concerns were answered. Follow up in 3 months, sooner if needed. Orders: Orders AMB Capsaicin Patch - Practice Supplied Today G62.9 - Polyneuropathy, unspecified Medications: Refilled lidocaine-prilocaine 2.5-2.5 % cleanse feet thoroughly, apply to both feet 30 minutes prior to appointment. 1 appl topical ONCE 30 grams 0RF preprocedure Coding Level of Care Code Est Pt Level 4 (30461) Complex EM visit Add On G2211 Diagnoses Peripheral neuropathy G62.9 Paresthesia R20.2
== END 2024-01-21 14:03 | disposition home or self-care (01) ==
PROVIDERS: PCP Internal Medicine; Visit Provider Registered Nurse Emergency
DX: G62.9 Polyneuropathy, unspecified (principal); R20.2 Paresthesia of skin
CPT/HCPCS: 17999; 99214

== ENCOUNTER → 2024-01-21 12:48 | Outpatient (BNVA) | payer MEDICARE, SELFPAY | PROVIDERS: PCP Internal Medicine; Visit Provider Registered Nurse Emergency | DX: G62.9 Polyneuropathy, unspecified (principal); R20.2 Paresthesia of skin | CPT/HCPCS: 17999; 99212; J7336 ==

== ENCOUNTER 2024-03-25 11:15 | Outpatient (AMB) | payer MEDICARE, SELFPAY ==
--- NOTE | 2024-03-25 11:24 | A.OFFVIS_ITS ---
Vital Signs 03/25/24 11:27 Height 5 ft 9 in Weight 290 lb 6 oz BMI 42.9 BP 142/70 H Blood Pressure Location Lt brachial Position Sitting Pulse 79 Pulse Source Pulse Oximeter Pulse Oximetry (%) 95 Oxygen Delivery Method Room Air Intake Visit Reasons: Follow Up Intake Note: Patient presents for a 7 mo fu for STEFANY. Pt has no concerns. Doctorate Of Chiropractic Required: No Accompanied by: Self / Same As Patient Allergies No Known Allergies Allergy (Verified 03/25/24 11:27) HPI Comments Details: 73-yr-old male presents for follow-up visit of sleep apnea. Pt denies any significant interval medical history changes. STEFANY Compliance 12/2023- 03/2024 >4 hours 90 days Total avg 9hours 38 min APAP [id number] Leaks 0-20/hr AHI 4.6 / hr Pt underwent in-lab PSG, as his residual AHI was elevated now on on APAP 8-20 cmH2O. Memory, Mood and diet is okay. Lives with his sister, retired operator and truck driver. BMI is elevated and he is Biking, Rowing, has lost 20lbs. BP 142/70 C/O feet tingling, numbness and spasms, fluid retention occasionally, he has neuropathy bilaterally has been doing treatments with Qutenza- [place] [facility] [place] 4th treatment coming up in Apr., noticing a difference. Cleans his mask, changes the filters, fills the reservoir as needed. [facility] Medical History (Updated 03/25/24 @ 12:34 by Kesha Rudd PA-C) Morbid obesity STEFANY (obstructive sleep apnea) Essential hypertension Paroxysmal atrial flutter Surgical History History of Mohs micrographic surgery for skin cancer Family History Father No problems noted. Mother Muscular dystrophy Social History Alcohol intake: current Alcohol intake frequency: holidays/special occasions only Patient Tobacco Use Status: Former Tobacco user Physical Exam Vital Signs: Last Vital Signs Pulse 79 03/25/24 11:27 BP 142/70 H 03/25/24 11:27 Pulse Ox 95 03/25/24 11:27 Oxygen Delivery Method Room Air 03/25/24 11:27 BMI result Body Mass Index 42.9 Const General: cooperative, comfortable and no acute distress Nutritional Appearance: obese (BMI 42.9) morbidly obese Orientation/consciousness: patient oriented x3 Eyes Pupils: Equal, round and reactive pupils present Resp Effort & Inspection: normal respiratory effort and able to speak in complete sentences Neuro General: patient oriented x3 Cranial nerves: Yes CN's II-XII intact bilaterally, Yes Facial sensation intact/muscles of mastication intact, Yes Equal, round and reactive pupils present, Yes Normal accommodation reflex present, Yes Bilaterally intact EOM present, Yes Nystagmus not present, Yes Normal facial strength present, Yes Midline tongue present, Yes Ability to bilaterally rotate head present and Yes Ability to bilaterally elevate shoulders present Cognition (Neuro): normal cognition and normal cognition Motor exam (neuro): 5/5 motor strength present throughout, Pronator motor function not present, no tremor noted, Normal motor muscle tone present throughout and Motor abnormalities not present Deep tendon reflexes (DTR's): Right triceps reflex intensity grade: 2+, Left triceps reflex intensity grade: 2+, Rt Biceps (C5, C6): 2+, Left biceps reflex intensity grade: 2+, Right brachioradialis reflex intensity grade: 2+, Left brachioradialis reflex intensity grade: 2+, Right patellar reflex intensity grade: 2+, Left patellar reflex intensity grade: 2+, Right ankle reflex intensity grade: 2+ and Left ankle reflex intensity grade: 2+ Coordination: [id number] test normal Psych Appearance: grossly normal Speech and movement: Normal speech and movement present Affect: normal affect Attitude: cooperative Thought process: Normal thought process present Thought content: Normal thought content present Insight: Good insight present (Psych) Judgement: Good judgement present (Psych) Results Reviewed Results Reviewed: STEFANY Compliance 12/2023- 03/2024 >4 hours 90 days Total avg 9hours 38 min APAP [id number] Leaks 0-20/hr AHI 4.6 / hr Assessment & Plan Assessment & Plan (1) STEFANY (obstructive sleep apnea): Comment: HST, Jan 2020, c/w with severe sleep apnea w/.AHI was 32 /hr and oxygen valdemar 81% Code(s): G47.33 - Obstructive sleep apnea (adult) (pediatric) Category: Medical (2) Peripheral neuropathy: Comment: Bilateral feet Code(s): G62.9 - Polyneuropathy, unspecified Category: Medical Qualifiers: Peripheral neuropathy type: polyneuropathy, other Qualified Code(s): G62.89 - Other specified polyneuropathies (3) Morbid obesity: Code(s): E66.01 - Morbid (severe) obesity due to excess calories Category: Medical Plan STEFANY : Continue using CPAP, as he continues to experience good results. BMI is elevated, continue working out, walking limiting carbs, increase fluid intake. F/U in 6 months or sooner as needed. Polyneuropathy Bilateral - due to Diabetes? Morbid Obesity? Lumbar compression? Coding Level of Care Code Est Pt Level 3 (51339) Diagnoses STEFANY (obstructive sleep apnea) G47.33 Other polyneuropathy G62.89 Peripheral neuropathy type: polyneuropathy, other Morbid obesity E66.01 Time Spent (min) 20 Comment Improving
[2024-03-25 11:27] VITALS: BP 142/70; PULSE 79; O2SAT 95; BMI 42.9
== END 2024-03-25 12:23 | disposition home or self-care (01) ==
PROVIDERS: PCP Internal Medicine; Visit Provider Physician Assistant Medical
DX: G47.33 Obstructive sleep apnea (adult) (pediatric) (principal); G62.89 Other specified polyneuropathies; E66.01 Morbid (severe) obesity due to excess calories
CPT/HCPCS: 99213

== ENCOUNTER → 2024-03-25 11:15 | Outpatient (BNVA) | payer MEDICARE, SELFPAY | PROVIDERS: PCP Internal Medicine; Visit Provider Physician Assistant Medical | DX: G47.33 Obstructive sleep apnea (adult) (pediatric) (principal); G62.89 Other specified polyneuropathies; E66.01 Morbid (severe) obesity due to excess calories; Z68.41 Body mass index [BMI] 40.0-44.9, adult | CPT/HCPCS: 99212 ==

== ENCOUNTER 2024-04-21 10:30 | Outpatient (AMB) | payer MEDICARE, SELFPAY ==
--- NOTE | 2024-04-21 10:37 | MHC.OFFVIS ---
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 Previous hospitalization to [facility] but nothing recently. Maintained on diltiazem and Eliquis. Since last seen, he states he is feeling good. No clear-cut cardiac concerns. According to him, no angina or shortness of breath or in fact anything cardiac sounding. His blood pressures generally on the higher side but he states that it is only doctor's offices but at home it is more so in the 130s and not too high. FORMERLY [facility], LAT[facility] Medical History (Updated 03/25/24 @ 12:34 by Kesha Rudd PA-C) Morbid obesity STEFANY (obstructive sleep apnea) Essential hypertension Paroxysmal atrial flutter Surgical History History of Mohs micrographic surgery for skin cancer Family History Father No problems noted. Mother Muscular dystrophy Social History Alcohol intake: current Alcohol intake frequency: holidays/special occasions only Patient Tobacco Use Status: Former Tobacco user Review of Systems Const Denies chills, Denies fatigue, Denies fever(s), Denies weight gain and Denies weight loss ENT Denies dizziness Card Denies chest pain, Denies leg edema, Denies lightheadedness, Denies palpitations, Denies dyspnea on exertion, Denies orthopnea and Denies other Resp Denies cough and Denies dyspnea on exertion GI Denies hematochezia and Denies change in stool character Musc Denies abnormal gait, Denies muscle weakness, Denies numbness, Denies radiating pain into limb and Denies tingling Neuro Denies abnormal gait, Denies dizziness, Denies numbness and Denies tingling Endo Denies fatigue and Denies palpitations Physical Exam Vital Signs: Last Vital Signs Pulse 72 04/21/24 10:38 BP 156/60 H 04/21/24 10:38 BMI result Body Mass Index 43.0 Const General: comfortable and no acute distress Orientation/consciousness: patient oriented x3 HEENT Other: Unremarkable Head: Yes normal to inspection Neck Neck: Yes normal visual inspection Chest Chest palpation & inspection: normal inspection of the chest Resp Auscultation: clear to auscultation bilaterally Cardio Palpation: normal PMI Heart sounds: S1 normal heart sound present, S2 normal heart sound present, no gallops, no murmurs and no rubs GI Palpation (GI): Soft to palpation Back/Spine/Pelvis Other: unremarkable Skin General skin exam: no rashes or lesions noted Neuro General: patient oriented x3 Extrem General: Yes normal to inspection Psych Mental Status: mental status grossly normal Office Procedures EKG Details: EKG with underlying sinus rhythm at 72/Min; leftward axis; right bundle-branch block; [place] [id number], Complete Assessment & Plan Assessment & Plan (1) Paroxysmal atrial flutter: Code(s): I48.92 - Unspecified atrial flutter Category: Medical Plan: Continue Diltiazem. Continue Eliquis. No recurrent episodes. (2) Essential hypertension: Code(s): I10 - Essential (primary) hypertension Category: Medical Plan: Blood pressure is on the higher side in the clinic but according to him it is only the 130s at home. Overall, still suspect he probably has slightly high blood pressures. We can get his BNP from PCP and if potassium and creatinine are okay, then consider increasing the dose of lisinopril. (3) Edema: Code(s): R60.9 - Edema, unspecified Category: Medical Qualifiers: Edema type: localized Qualified Code(s): R60.0 - Localized edema Plan: Continue diuretics. Could be from obesity/right heart dysfunction. Venous insufficiency may also play a role. Stable. (4) Bifascicular bundle branch block: Code(s): I45.2 - Bifascicular block Category: Medical Plan: Stable. (5) STEFANY (obstructive sleep apnea): Comment: HST, Jan 2020, c/w with severe sleep apnea w/.AHI was 32 /hr and oxygen valdemar 81% Code(s): G47.33 - Obstructive sleep apnea (adult) (pediatric) Category: Medical Plan: Sleep study at [facility] shows severe obstructive sleep apnea. Continue CPAP. (6) Morbid obesity: Code(s): E66.01 - Morbid (severe) obesity due to excess calories Category: Medical Plan: He has been this way for a long time and doubt it is going to change much. Coding Level of Care Code Est Pt Level 4 (34465) Diagnoses Paroxysmal atrial flutter I48.92 Essential hypertension I10 Localized edema R60.0 Edema type: localized Bifascicular bundle branch block I45.2 STEFANY (obstructive sleep apnea) G47.33 Morbid obesity E66.01 CPT Codes EKG - CPT: 36799-[id number], Complete ([id number])
[2024-04-21 10:38] VITALS: BP 156/60; PULSE 72; BMI 43.0
== END 2024-04-21 11:12 | disposition home or self-care (01) ==
PROVIDERS: PCP Internal Medicine; Visit Provider Internal Medicine
DX: I48.92 Unspecified atrial flutter (principal); I10 Essential (primary) hypertension; R60.0 Localized edema; I45.2 Bifascicular block; G47.33 Obstructive sleep apnea (adult) (pediatric); E66.01 Morbid (severe) obesity due to excess calories
CPT/HCPCS: 93010; 99214

== ENCOUNTER → 2024-04-21 10:30 | Outpatient (BNVA) | payer MEDICARE, SELFPAY | PROVIDERS: PCP Internal Medicine; Visit Provider Internal Medicine | DX: G62.89 Other specified polyneuropathies (principal); R20.2 Paresthesia of skin; I48.92 Unspecified atrial flutter; I10 Essential (primary) hypertension; I45.2 Bifascicular block; R60.0 Localized edema; G47.33 Obstructive sleep apnea (adult) (pediatric); E66.01 Morbid (severe) obesity due to excess calories; Z68.41 Body mass index [BMI] 40.0-44.9, adult | CPT/HCPCS: 17999; 93005; 99212; J7336 ==

== ENCOUNTER 2024-04-21 12:57 | Outpatient (AMB) | payer MEDICARE, SELFPAY ==
--- NOTE | 2024-04-21 12:58 | MHC.OFFVIS ---
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 Applied EMLA cream at home per instructions. Denies any changes in his painful bilateral peripheral neuropathy since last visit. Continues with amitriptyline 25 mg at bedtime. Sleeping well with this medication. Patient denies any recent injuries or wounds to his feet. [facility] Medical History (Updated 03/25/24 @ 12:34 by Kesha Rudd PA-C) Morbid obesity STEFANY (obstructive sleep apnea) Essential hypertension Paroxysmal atrial flutter Surgical History History of Mohs micrographic surgery for skin cancer Family History Father No problems noted. Mother Muscular dystrophy Social History Alcohol intake: current Alcohol intake frequency: holidays/special occasions only Patient Tobacco Use Status: Former Tobacco user Review of Systems Const All systems reviewed & are unremarkable except as noted in HPI and below Physical Exam Vital Signs: Last Vital Signs Pulse 68 04/21/24 13:42 BP 132/66 04/21/24 13:42 Pulse Ox 95 04/21/24 13:02 Oxygen Delivery Method Room Air 04/21/24 13:02 BMI result Body Mass Index 42.7 General: awake, alert, oriented. Answers questions appropriately. Fully engaged in examination. Skin: Bilateral feet: No rashes, lesions, wounds, abrasions. HEENT: Normocephalic. Hearing intact. Cardiac: External chest normal in appearance. Bilateral peripheral edema. Respiratory: No cough, audible wheezing or stridor. Abdomen: without gross distension. MS: No obvious swelling or deformities. Able to stand on bilateral tiptoes and bilateral heels.? Able to transition from sit to stand unassisted. Neurological: Oriented to person, place, time and situation. Thought process intact. No gait abnormalities appreciated. Psychiatric: Appropriate mood and affect. Good judgment and insight. Office Procedures Topical Capsaicin Laterality: Bilateral Quality of pain: Aching, Burning and Throbbing Office Meds capsaicin-skin cleanser 8 % topical kit Performing Provider: Norma Garner APRN, CNP Performing Location: [facility] Administered by: Norma Garner APRN, CNP on 04/21/24 13:36 Dose Route Admin Location Dispensed Lot Number Expiration Date [facility] Career Resource Specialist 4 ea topical 4 ea [id number] [employer] Comments: Comments: Patient applied topical EMLA cream to both feet prior to arrival for his scheduled appointment. Feet exposed, no wounds, rashes or breaks in skin noted. Light touch sensation intact bilaterally. Four single use topical patches (179mg capsaicin) divided between feet, 2 patches per foot, wrapped and secured per package instructions. Patient monitored throughout the procedure with BP checks every 15 minutes. He tolerated the 30 minute application well. Results Reviewed Results Reviewed: 07/11/23 EMG FINDINGS: Bilateral tibial nerves showed normal distal latency, drop in amplitude proximally but normal conduction velocity. Right peroneal nerve within normal. Bilateral sural nerves were present with normal peak latencies and amplitudes. Concentric needle EMG was performed in selected muscles of the bilateral lower extremity. Study revealed signs of electric abnormalities as shown in the table below. Bilateral AH showed increased insertional activity, PSWs and fibrillations. IMPRESSION: 1. This is an abnormal study. 2. Findings above depict picture of a chronic, distal, symmetric, mainly axonal and motor, neuropathy. 3. However I can not completely rule out an L5-S1 radiculopathy. Assessment & Plan Assessment & Plan (1) Peripheral neuropathy: Comment: Bilateral feet Code(s): G62.9 - Polyneuropathy, unspecified Category: Medical Qualifiers: Peripheral neuropathy type: polyneuropathy, other Qualified Code(s): G62.89 - Other specified polyneuropathies (2) Paresthesia: Comment: Left lateral thigh Code(s): R20.2 - Paresthesia of skin Category: Medical Plan Patient presented to the office today for follow-up bilateral peripheral neuropathy and 4th topical Qutenza application. Qutenza application as per above. Patient tolerated well, discharged home with no reported untoward effects. Cleansing gel applied prior to discharge, patient given cleansing gel for home use if needed. Continue with amitriptyline to 25mg p.o. at bedtime. All questions and concerns were answered. Follow up in 3 months, sooner if needed. Orders: Orders AMB Capsaicin Patch - Practice Supplied Today G62.89 - Other specified polyneuropathies Coding Level of Care Code Est Pt Level 3 (18351) Complex EM visit Add On G2211 Diagnoses Other polyneuropathy G62.89 Peripheral neuropathy type: polyneuropathy, other Paresthesia R20.2
[2024-04-21 13:02] VITALS: BP 151/70; PULSE 76; O2SAT 95; BMI 42.7
[2024-04-21 13:42] VITALS: BP 132/66; PULSE 68
[2024-04-21 14:00] VITALS: BP 136/66; PULSE 61
== END 2024-04-21 14:01 | disposition home or self-care (01) ==
PROVIDERS: PCP Internal Medicine; Visit Provider Registered Nurse Emergency
DX: G62.89 Other specified polyneuropathies (principal); R20.2 Paresthesia of skin
CPT/HCPCS: 17999; 99213

== ENCOUNTER 2024-09-22 09:51 | Outpatient (AMB) | payer MEDICARE, SELFPAY ==
[2024-09-22 09:56] VITALS: BP 130/68; PULSE 65; O2SAT 96
--- NOTE | 2024-09-22 09:56 | MHC.OFFVIS ---
Vital Signs 09/22/24 09:56 Height 5 ft 9 in BP 130/68 Blood Pressure Location Lt brachial Position Sitting Pulse 65 Pulse Source Pulse Oximeter Pulse Oximetry (%) 96 Oxygen Delivery Method Room Air Intake Visit Reasons: Follow up 6mo Intake Note: Patient presents follow up STEFANY. Compliance in chart(90/90days, >=4hrs-100%, average usage- 9hrs 22min, Med pressure-11.9, Med leaks- 0.0, AHI- 3.0). Allergies No Known Allergies Allergy (Verified 09/22/24 10:00) HPI Comments Details: 74-yr-old l. handed male presents for follow-up visit of sleep apnea. PSG completed due to elevated AHI and now on APAP [id number]. STEFANY Compliance 06/2024- 09/2024 Total use 90/90 days and >4 hours 9hours and 22min. Therapy APAP [id number] Pressures Median 11.9 Leaks 0 /hr AHI 3.0/hr Labs reviewed with patient from 11/2023 Pt denies any significant interval medical history changes, we reviewed his compliance and labs today. He has lost over 25lbs, and BP have improved, and denies arrythmias. He goes to bed at 10pm and falls asleep at midnight, watches tv for a while. Wakes up at 9am, usually has 1 bathroom break. He has BPH however, no complaints. He used to weigh 310 now 285lbs in office today. He is a retired industrial truck operator and former smoker, quit 5 years ago. He made some lifestyle and dietary changes reducing sugars, biking and rowing every other day for 45min. He feels better with use of cpap. RLS symptoms + neuropathy, with bilateral surges of electric shock like firing sensations. He tried Qutenza, with minimal relief, followed by pain management and now uses pressure stockings 3-4 hours a day, and the symptoms have improved. His memory is stable, will forget names. Mood and diet are okay. He cleans his mask, changes the filters, fills the reservoir as needed. [facility] Medical History Morbid obesity STEFANY (obstructive sleep apnea) Essential hypertension Paroxysmal atrial flutter Surgical History History of Mohs micrographic surgery for skin cancer Family History Father No problems noted. Mother Muscular dystrophy Social History (Updated 09/22/24 @ 10:57 by Kesha Rudd PA-C) Alcohol intake: current Alcohol intake frequency: holidays/special occasions only Patient Tobacco Use Status: Former Tobacco user Cigarette Packs Per Day: 2 Cigarettes Per Day: 40 Years Smoked: 15 Physical Exam Vital Signs: Last Vital Signs Pulse 65 09/22/24 09:56 BP 130/68 09/22/24 09:56 Pulse Ox 96 09/22/24 09:56 Oxygen Delivery Method Room Air 09/22/24 09:56 285lbs today and bp is improved. Const General: cooperative, comfortable and no acute distress Nutritional Appearance: obese (BMI 42.9) morbidly obese Orientation/consciousness: patient oriented x3 HEENT Face and sinus: Yes face symmetric Teeth and gingiva: other (mallampti score is 3) Eyes Pupils: Equal, round and reactive pupils present Neck Neck: Yes other (stiffness with extension of cervical spine) Resp Effort & Inspection: normal respiratory effort and able to speak in complete sentences Neuro Other: mild LUE tremor and oral tremor General: patient oriented x3 and moves all extremities Cranial nerves: Yes CN's II-XII intact bilaterally, Yes Facial sensation intact/muscles of mastication intact, Yes Equal, round and reactive pupils present, Yes Normal accommodation reflex present, Yes Bilaterally intact EOM present, Yes Nystagmus not present, Yes Normal facial strength present, Yes Midline tongue present, Yes Ability to bilaterally rotate head present and Yes Ability to bilaterally elevate shoulders present Cognition (Neuro): normal cognition Gait exam (Neuro): Normal gait present Motor exam (neuro): 5/5 motor strength present throughout, Pronator motor function not present, no tremor noted, Normal motor muscle tone present throughout and Tremors during motor activity present (LUE tremor mild and oral / facial tremor is mild) Psych Appearance: grossly normal Speech and movement: Normal speech and movement present Affect: normal affect Attitude: cooperative Thought process: Normal thought process present Thought content: Normal thought content present Results Reviewed Results Reviewed: STEFANY Compliance 06/2024- 09/2024 Total use 90/90 days and >4 hours 9hours and 22min. Therapy APAP [id number] Pressures Median 11.9 Leaks 0 /hr AHI 3.0/hr Assessment & Plan Assessment & Plan (1) STEFANY (obstructive sleep apnea): Comment: HST, Jan 2020, c/w with severe sleep apnea w/.AHI was 32 /hr and oxygen valdemar 81% Code(s): G47.33 - Obstructive sleep apnea (adult) (pediatric) Category: Medical (2) Peripheral neuropathy: Comment: Bilateral feet/ declines DA/gabapentin today Code(s): G62.9 - Polyneuropathy, unspecified Category: Medical Qualifiers: Peripheral neuropathy type: polyneuropathy, other Qualified Code(s): G62.89 - Other specified polyneuropathies (3) Morbid obesity: Code(s): E66.01 - Morbid (severe) obesity due to excess calories Category: Medical Plan STEFANY Continue using APAP, as he continues to experience good results and resful sleep. BMI is elevated, though he lost 25lbs with diet and exercise, continue with this routine. RLS + polyneuropathy, tried Qutenza by pain management, has pre-diabetes 6.4 A1c being monitored, recommended Magnalife otc. Start Magnesium 400mg and B6 200mg po for nerve pain related to RLS, and continue to wear compression stockings. F/U in 6 months. Medications: New magnesium aspart,citrate,oxide may take 400mg po at bedtime daily for RLS symmptoms. 400 mg PO DAILY 30 caps 0RF neuropathy 30 days MDD 400mg G62.89 - Other specified polyneuropathies Patient Instructions: Sleep Hygiene provided: set a scheduled bedtime and wake time to help regulate the circadian rhythm and balance the release of pituitary hormones. Sleep in a dark room, temperatures below 68 degrees, and no devices n bed. Limit caffeinated products 6 hours prior to bed, and limit fluids 2-4 hours prior to bed. Gentle night yoga, diffusing essential oils, and playing soft music can be relaxing. Coding Level of Care Code Est Pt Level 4 (28872) Diagnoses STEFANY (obstructive sleep apnea) G47.33 Other polyneuropathy G62.89 Peripheral neuropathy type: polyneuropathy, other Morbid obesity E66.01 Time Spent (min) 30 Comment Improved BP with weight loss.
== END 2024-09-22 11:04 | disposition home or self-care (01) ==
LOC: HO.HSMS 09:52
PROVIDERS: PCP Internal Medicine; Visit Provider Physician Assistant Medical
DX: G47.33 Obstructive sleep apnea (adult) (pediatric) (principal); G62.89 Other specified polyneuropathies; E66.01 Morbid (severe) obesity due to excess calories
CPT/HCPCS: 99214

== ENCOUNTER → 2024-09-22 09:51 | Outpatient (BNVA) | payer MEDICARE, SELFPAY | PROVIDERS: PCP Internal Medicine; Visit Provider Physician Assistant Medical | DX: G47.33 Obstructive sleep apnea (adult) (pediatric) (principal); G62.89 Other specified polyneuropathies; E66.01 Morbid (severe) obesity due to excess calories | CPT/HCPCS: 99212 ==

== ENCOUNTER 2024-10-26 10:07 | Outpatient (AMB) | payer MEDICARE, SELFPAY ==
--- NOTE | 2024-10-26 10:34 | MHC.OFFVIS ---
Vital Signs 10/26/24 10:36 Height 5 ft 9 in Weight 284 lb 13.396 oz BMI 42.1 BP 126/64 Blood Pressure Location Lt brachial Position Sitting Pulse 65 Pulse Source Pulse Oximeter Intake Visit Reasons: 6m follow up Folder Inspector Required: No Accompanied by: Self / Same As Patient Allergies No Known Allergies Allergy (Verified 09/22/24 10:00) Medication List - Last Reconciled 10/26/24 by Ted Cortez MD amitriptyline 25 mg PO BEDTIME 90 days apixaban (Eliquis) 5 mg PO BID atorvastatin 20 mg PO DAILY diltiazem HCl CD 240 mg PO DAILY furosemide 20 mg PO DAILY lidocaine-prilocaine 2.5-2.5 % 1 appl topical ONCE lisinopril 10 mg PO DAILY magnesium aspart,citrate,oxide 400 mg PO DAILY 30 days MDD 400mg metformin 500 mg PO DAILY multivitamin 1 tab PO DAILY HPI Comments Details: Lj returns for follow-up regarding atrial flutter. Previous hospitalization to [facility] but nothing recently. Maintained on diltiazem and Eliquis. Overall, he is doing good. No clear-cut cardiac symptoms. Getting along fine without any limitations. [facility] Medical History Morbid obesity STEFANY (obstructive sleep apnea) Essential hypertension Paroxysmal atrial flutter Surgical History History of Mohs micrographic surgery for skin cancer Family History Father No problems noted. Mother Muscular dystrophy Social History Alcohol intake: current Alcohol intake frequency: holidays/special occasions only Patient Tobacco Use Status: Former Tobacco user Cigarette Packs Per Day: 2 Cigarettes Per Day: 40 Years Smoked: 15 Review of Systems Const Denies chills, Denies fatigue, Denies fever(s), Denies frequent falls, Denies weakness, Denies weight gain and Denies weight loss ENT Denies dizziness Card Denies chest pain, Denies leg edema, Denies lightheadedness, Denies palpitations, Denies dyspnea and Denies dyspnea on exertion Resp Denies cough, Denies dyspnea and Denies dyspnea on exertion GI Denies hematochezia Musc Denies abnormal gait, Denies muscle weakness, Denies numbness, Denies radiating pain into limb and Denies tingling Neuro Denies abnormal gait, Denies dizziness, Denies frequent falls, Denies numbness, Denies tingling and Denies weakness Endo Denies fatigue and Denies palpitations Physical Exam Vital Signs: Last Vital Signs Pulse 65 10/26/24 10:36 BP 126/64 10/26/24 10:36 BMI result Body Mass Index 42.1 Const General: comfortable and no acute distress Orientation/consciousness: patient oriented x3 HEENT Other: Unremarkable Head: Yes normal to inspection Neck Neck: Yes normal visual inspection Chest Chest palpation & inspection: normal inspection of the chest Resp Auscultation: clear to auscultation bilaterally Cardio Palpation: normal PMI Heart sounds: S1 normal heart sound present, S2 normal heart sound present, no gallops, no murmurs and no rubs GI Palpation (GI): Soft to palpation Back/Spine/Pelvis Other: unremarkable Skin General skin exam: no rashes or lesions noted Neuro General: patient oriented x3 Extrem General: Yes normal to inspection Psych Mental Status: mental status grossly normal Assessment & Plan Assessment & Plan (1) Paroxysmal atrial flutter: Code(s): I48.92 - Unspecified atrial flutter Category: Medical Plan: Continue Diltiazem and Eliquis. (2) Essential hypertension: Code(s): I10 - Essential (primary) hypertension Category: Medical Plan: Stable. On lisinopril. (3) Edema: Code(s): R60.9 - Edema, unspecified Category: Medical Qualifiers: Edema type: localized Qualified Code(s): R60.0 - Localized edema Plan: Stable. On low-dose Lasix. Could be from obesity/right heart dysfunction. Venous insufficiency may also play a role. Stable. (4) Bifascicular bundle branch block: Code(s): I45.2 - Bifascicular block Category: Medical Plan: Stable. (5) STEFANY (obstructive sleep apnea): Comment: HST, Jan 2020, c/w with severe sleep apnea w/.AHI was 32 /hr and oxygen valdemar 81% Code(s): G47.33 - Obstructive sleep apnea (adult) (pediatric) Category: Medical Plan: Sleep study at [facility] shows severe obstructive sleep apnea. Continue CPAP. (6) Morbid obesity: Code(s): E66.01 - Morbid (severe) obesity due to excess calories Category: Medical Plan: He has been this way for a long time and doubt it is going to change much. Plan Discussion Notes During the visit, I discussed the importance of continuing lisinopril for blood pressure control and the benefits of CPAP therapy for sleep apnea. Patient was informed and verbally consented to the use of an ambient scribe for clinic note documentation during this visit. Patient Instructions: - Continue taking lisinopril 10 mg daily. - Use CPAP machine every night for sleep apnea. - Contact the office if any new symptoms arise. Coding Level of Care Code Est Pt Level 4 (33178) Complex EM visit Add On G2211 Diagnoses Paroxysmal atrial flutter I48.92 Essential hypertension I10 Localized edema R60.0 Edema type: localized Bifascicular bundle branch block I45.2 STEFANY (obstructive sleep apnea) G47.33 Morbid obesity E66.01
[2024-10-26 10:36] VITALS: BP 126/64; PULSE 65; BMI 42.1
== END 2024-10-26 10:52 | disposition home or self-care (01) ==
LOC: HO.HCS 10:07
PROVIDERS: PCP Internal Medicine; Visit Provider Internal Medicine
DX: I48.92 Unspecified atrial flutter (principal); I10 Essential (primary) hypertension; R60.0 Localized edema; I45.2 Bifascicular block; G47.33 Obstructive sleep apnea (adult) (pediatric); E66.01 Morbid (severe) obesity due to excess calories
CPT/HCPCS: 99214; G2211

== ENCOUNTER → 2024-10-26 10:07 | Outpatient (BNVA) | payer MEDICARE, SELFPAY | PROVIDERS: PCP Internal Medicine; Visit Provider Internal Medicine | DX: I10 Essential (primary) hypertension (principal); I48.92 Unspecified atrial flutter; R60.0 Localized edema; I45.2 Bifascicular block; G47.33 Obstructive sleep apnea (adult) (pediatric); Z99.89 Dependence on other enabling machines and devices; E66.01 Morbid (severe) obesity due to excess calories | CPT/HCPCS: 99212 ==